=== PATIENT | female | born 1950 | race Caucasian/White ===

== ENCOUNTER 2020-01-27 20:05 | Inpatient (IN) | payer MEDICARE, OTHER ==
[~2020-01-27] VITALS: Ht 162.6 cm; Wt 76.8 kg
[2020-01-27] MEDS ORDERED: FAMOTIDINE10 MG PO (20:29)
[2020-01-27] MEDS ORDERED: CELEXA10 MG PO (20:30)
[2020-01-27] MEDS ORDERED: OMEPRAZOLE40 MG (20:30)
[2020-01-27] MEDS ORDERED: ASPIRIN325 MG PO (20:30)
[2020-01-27 20:34] LABS: BASOPHILS 0.3 % (0-2); EOSINOPHILS 4.4 % (0-7); HEMATOCRIT 39.2 % (36.0-48.0); HEMOGLOBIN 12.9 g/dL (12-16); IMMATURE GRANULOCYTES 0.3 % (0-5); LYMPHOCYTES 28.7 % (15-50); MCH 28.5 pg (26.0-34.0); MCHC 32.9 g/dL (31.0-37.0); MCV 86.7 fL (80.0-100.0); MEAN PLATELET VOLUME 9.6 fL (7.4-10.4); MONOCYTES 9.1 % (2-11); NEUTROPHILS 57.2 % (40-80); PLATELET COUNT 329 10x3/uL (130-400); RBC 4.52 10x6/uL (4.00-5.40); RDW 13.3 % (11.5-14.5); WBC 7.9 10x3/uL (4.8-10.8)
[2020-01-27 20:45] LABS: CALC OSMOLALITY 283 mosm/kg (275-300); CALCIUM 8.9 mg/dL (8.5-10.1); CARBON DIOXIDE 26.3 mmol/L (21.0-32.0); CHLORIDE - SERUM 106 mmol/L (98-107); CREATININE - SERUM 0.9 mg/dL (0.6-1.3); GLUCOSE 100 mg/dL (74-106); POTASSIUM - SERUM 3.8 mmol/L (3.5-5.1); SODIUM 141 mmol/L (136-145); UREA NITROGEN 20 mg/dL (7-18); eGFR NON AFRICAN AMERICAN 66 mL/min (90-120)
[2020-01-27 20:46] VITALS: BP 165/66
[2020-01-27 20:52] LABS: APTT 34.6 SECONDS (22.8-39.4); INR 0.92 (0.85-1.17); PROTIME 12.3 SECONDS (11.6-15.0)
[2020-01-27 21:00] LABS: ALBUMIN 3.6 g/dL (3.4-5.0); ALKALINE PHOSPHATASE 121 U/L (30-120); ALT (SGPT) 21 U/L (10-68); BILIRUBIN - TOTAL 0.25 mg/dL (0.2-1.3); CKMB 1.6 U/L (0.0-3.6); CREATINE KINASE 180 UL (21-215); MAGNESIUM - SERUM 2.2 mg/dL (1.8-2.4); PROTEIN - SERUM 7.3 g/dL (6.4-8.2); THYROID STIMULATING HORMONE 5.75 uIU/mL (0.36-3.74); TROPONIN-I < 0.017 ng/mL (0.000-0.060)
[2020-01-28] VITALS (7 sets, daily range): BP systolic 109–186; BP diastolic 63–77; Ht 162.6 cm; Wt 76.8 kg
[2020-01-28 04:58] LABS: BASOPHILS 0.3 % (0-2); HEMOGLOBIN 12.8 g/dL (12-16); IMMATURE GRANULOCYTES 0.3 % (0-5); LYMPHOCYTES 30.3 % (15-50); MCH 28.6 pg (26.0-34.0); MCHC 32.8 g/dL (31.0-37.0); MCV 87.1 fL (80.0-100.0); MEAN PLATELET VOLUME 9.7 fL (7.4-10.4); MONOCYTES 9.7 % (2-11); NEUTROPHILS 53.4 % (40-80); PLATELET COUNT 306 10x3/uL (130-400); RBC 4.48 10x6/uL (4.00-5.40); RDW 13.2 % (11.5-14.5); WBC 7.2 10x3/uL (4.8-10.8)
[2020-01-28 05:36] LABS: ANION GAP 9.5 mmol/L (8-16); CALCIUM 8.7 mg/dL (8.5-10.1); CARBON DIOXIDE 27.2 mmol/L (21.0-32.0); CHOL - HDL RATIO 5.1 ratio (2.3-4.1); LDL-HDL RATIO 3.6 ratio (1.5-3.5); MAGNESIUM - SERUM 2.1 mg/dL (1.8-2.4); PHOSPHOROUS 3.6 mg/dL (2.5-4.9); POTASSIUM - SERUM 3.7 mmol/L (3.5-5.1); T4 THYROXIN - FREE 1.05 ng/dL (0.76-1.46); THYROID STIMULATING HORMONE 4.95 uIU/mL (0.36-3.74)
[2020-01-28 13:22] LABS: CREATINE KINASE 131 UL (21-215); TROPONIN-I 0.034 ng/mL (0.000-0.060)
[2020-01-28 14:48] LABS: BILIRUBIN NEGATIVE (NEGATIVE); GLUCOSE NEGATIVE (NEGATIVE); KETONE NEGATIVE (NEGATIVE); NITRITE NEGATIVE (NEGATIVE); UROBILINOGEN NORMAL (NORMAL); WHITE CELLS - URINE OCC /hpf (NEGATIVE)
[2020-01-28 14:49] LABS: BACTERIA FEW /hpf (NEGATIVE); EPITHELIAL CELLS 0-5 /hpf (0-5); RED CELLS - URINE RARE /hpf (0-5)
[2020-01-28 18:23] LABS: CKMB 0.9 U/L (0.0-3.6); CREATINE KINASE 133 UL (21-215); TROPONIN-I 0.022 ng/mL (0.000-0.060)
[2020-01-28 23:53] LABS: CKMB 0.7 U/L (0.0-3.6); CREATINE KINASE 123 UL (21-215); TROPONIN-I 0.021 ng/mL (0.000-0.060)
[2020-01-29] VITALS (7 sets, daily range): BP systolic 142–195; BP diastolic 72–82
[2020-01-29 06:29] LABS: BASOPHILS 0.3 % (0-2); EOSINOPHILS 5.2 % (0-7); HEMATOCRIT 39.1 % (36.0-48.0); HEMOGLOBIN 12.8 g/dL (12-16); IMMATURE GRANULOCYTES 0.1 % (0-5); LYMPHOCYTES 27.6 % (15-50); MCH 28.6 pg (26.0-34.0); MCHC 32.7 g/dL (31.0-37.0); MCV 87.3 fL (80.0-100.0); MEAN PLATELET VOLUME 9.7 fL (7.4-10.4); MONOCYTES 7.4 % (2-11); NEUTROPHILS 59.4 % (40-80); PLATELET COUNT 300 10x3/uL (130-400); RBC 4.48 10x6/uL (4.00-5.40); RDW 13.3 % (11.5-14.5); WBC 6.8 10x3/uL (4.8-10.8)
[2020-01-29 07:08] LABS: ALBUMIN 3.3 g/dL (3.4-5.0); ANION GAP 14.4 mmol/L (8-16); BILIRUBIN - TOTAL 0.27 mg/dL (0.2-1.3); CALCIUM 8.6 mg/dL (8.5-10.1); CARBON DIOXIDE 24.9 mmol/L (21.0-32.0); PROTEIN - SERUM 6.2 g/dL (6.4-8.2)
[2020-01-29 07:10] LABS: POTASSIUM - SERUM 4.3 mmol/L (3.5-5.1)
[2020-01-30] VITALS: BP 185/84
[2020-01-30 04:00] VITALS: BP 150/90
[2020-01-30 05:18] LABS: BASOPHILS 0.4 % (0-2); EOSINOPHILS 5.2 % (0-7); HEMATOCRIT 42.3 % (36.0-48.0); HEMOGLOBIN 14.1 g/dL (12-16); IMMATURE GRANULOCYTES 0.3 % (0-5); LYMPHOCYTES 30.2 % (15-50); MCH 28.8 pg (26.0-34.0); MCHC 33.3 g/dL (31.0-37.0); MCV 86.3 fL (80.0-100.0); MEAN PLATELET VOLUME 9.9 fL (7.4-10.4); MONOCYTES 7.1 % (2-11); NEUTROPHILS 56.8 % (40-80); PLATELET COUNT 345 10x3/uL (130-400); RDW 13.1 % (11.5-14.5); WBC 6.9 10x3/uL (4.8-10.8)
[2020-01-30 05:38] LABS: ALBUMIN 3.7 g/dL (3.4-5.0); ANION GAP 11.8 mmol/L (8-16); BILIRUBIN - TOTAL 0.34 mg/dL (0.2-1.3); CALCIUM 8.9 mg/dL (8.5-10.1); CARBON DIOXIDE 26.9 mmol/L (21.0-32.0); POTASSIUM - SERUM 3.7 mmol/L (3.5-5.1); PROTEIN - SERUM 7.5 g/dL (6.4-8.2)
[2020-01-30] MEDS ORDERED: MOBIC7.5 MG PO (08:43)
[2020-01-30] MEDS ORDERED: LOVASTATIN20 MG PO (08:44)
[2020-01-30] MEDS ORDERED: VENTOLIN HFA [SP8 GM INH (08:44)
[2020-01-30] MEDS ORDERED: FLOVENT HFA 11012 GM INH (08:44)
[2020-01-30 09:53] VITALS: BP 144/67
[2020-01-30] MEDS ORDERED: COZAAR50 MG PO (12:49)
[2020-01-30] MEDS ORDERED: CATAPRES0.1 MG PO (12:49)
[2020-01-30] MEDS ORDERED: LIPITOR20 MG PO (12:49)
[2020-01-30] MEDS ORDERED: PLAVIX75 MG PO (12:49)
[2020-01-30 13:11] VITALS: BP 183/78
== END 2020-01-30 17:32 | disposition home or self-care (01) | DRG 66 ==
LOC: D.ER 20:05 → D.MS 21:17 → OBSVTIME 21:17 → D.MS 21:17
PROVIDERS: Emergency Medicine; Family Medicine; ADMIT Internal Medicine Nephrology; ATTEND Internal Medicine Nephrology
DX: I63.22 Cerebral infarction due to unspecified occlusion or stenosis of basilar artery (principal); K21.9 Gastro-esophageal reflux disease without esophagitis; M19.90 Unspecified osteoarthritis, unspecified site; N95.9 Unspecified menopausal and perimenopausal disorder; F41.8 Other specified anxiety disorders